=== PATIENT | female | born 1955 | race Caucasian/White ===

== ENCOUNTER → 2016-11-20 | Outpatient (CLI) | payer MEDICAID | LOC: FIMAGING 10:15 | PROVIDERS: ATTEND Nurse Practitioner Family | DX: Z12.31 Encounter for screening mammogram for malignant neoplasm of breast (principal) | CPT/HCPCS: G0202 ==

== ENCOUNTER → 2017-11-26 | Outpatient (CLI) | payer MEDICAID ==
[~2017-11-26] MED LIST: LIDOCAINE 2% 5 ML SDV ONE; RANITIDINE 50 MG/2 ML VIAL ONE
== END ==
LOC: FIMAGING 13:42
PROVIDERS: ATTEND Nurse Practitioner Family
DX: Z12.31 Encounter for screening mammogram for malignant neoplasm of breast (principal); Z85.3 Personal history of malignant neoplasm of breast; Z80.3 Family history of malignant neoplasm of breast
CPT/HCPCS: J2780